=== PATIENT | female | born 1970 | race Caucasian/White ===

== ENCOUNTER 2021-11-21 23:12 | Inpatient (IN) | payer MEDICAID ==
[~2021-11-21] VITALS: Ht 160 cm; Wt 68.7 kg
[2021-11-21 23:58] LABS: BASOPHILS % (AUTO) 1.2 % (0.0-2.0); EOSINOPHILS % (AUTO) 0.8 % (1.0-6.0); HEMATOCRIT 29.3 % (36-46); HEMOGLOBIN 9.5 g/dL (12.0-16.0); LYMPHOCYTES # (AUTO) 0.6 K/uL (1.0-4.8); LYMPHOCYTES % (AUTO) 14.3 % (22.0-44.0); MEAN CORPUSCULAR HEMOGLOBIN 27.6 pg (26.0-34.0); MEAN CORPUSCULAR HGB CONC 32.3 G/dL (31.0-37.0); MEAN CORPUSCULAR VOLUME 86 fL (80-100); MONOCYTES # (AUTO) 0.5 K/uL (0.1-1.0); MONOCYTES % (AUTO) 12.2 % (2.0-9.0); NEUTROPHILS # (AUTO) 2.8 K/uL (1.8-7.7); NEUTROPHILS % (AUTO) 71.5 % (40.0-70.0); PLATELET COUNT (AUTO) 94 K/uL (150-450); RED BLOOD CELL COUNT(AUTO) 3.43 MIL/uL (4.00-5.20)
[2021-11-22] MEDS ORDERED: BACITRACIN 0.9 GM PACKET OINTMENT TP ONE
[2021-11-22 00:18] LABS: ALANINE AMINOTRANSFERASE 55 U/L (12-78); ALBUMIN 2.3 g/dL (3.4-5.0); ALKALINE PHOSPHATASE 156 U/L (46-116); ASPARTATE AMINOTRANSFERASE 99 U/L (15-37); BILIRUBIN,TOTAL 2.4 mg/dL (0.1-1.0); CALCIUM, TOTAL 8.1 mg/dL (8.8-10.5); CHLORIDE 101 mmol/L (98-107); CREATININE 0.64 mg/dL (0.60-1.30); GLOMERULAR FILTR. RATE CALC > 60 mL/min (>60); GLUCOSE,RANDOM 109 mg/dL (70-110); SODIUM SERUM 132 mmol/L (136-145); TOTAL PROTEIN, SERUM 8.8 g/dL (6.4-8.2); UREA NITROGEN, BLOOD 5 mg/dL (7-18)
[2021-11-22 00:27] LABS: ANION GAP 13 mmol/L (8-16); CARBON DIOXIDE 18 mmol/L (22-29)
[2021-11-22] MEDS ORDERED: POTASSIUM CHLORIDE 20 MEQ ER TABLET PO ONE ×2 (01:00→06:30)
[2021-11-22] MEDS ORDERED: LORazepam 2 MG TABLET PO PRN (03:15)
[2021-11-22] MEDS ORDERED: ZOLPIDEM TARTRATE 10 MG TABLET PO PRN (03:15)
[2021-11-22] MEDS ORDERED: HALOPERIDOL 5 MG TABLET PO PRN (03:15)
[2021-11-22 03:58] LABS: COVID AG,FIA SOURCE NASOPHARYNGEAL
[2021-11-22 05:00] VITALS: BP 168/98
[2021-11-22 05:03] LABS: POTASSIUM 2.8 mmol/L (3.5-5.1)
[2021-11-22] MEDS ORDERED: INFLUENZA VIRUS VACCINE QVS 2021-22 (6MO+)/PF 60 MCG/0.5 ML SYRINGE IM. ONE (05:45)
[2021-11-22 08:05] VITALS: BP 155/99
[2021-11-22 09:00] VITALS: BP 155/99
[2021-11-22] MEDS ORDERED: GuaiFENesin/D-METHORPHAN [SUGAR-FREE] 200-20MG/10 ML SYRUP UDCUP PO PRN (09:30)
[2021-11-22] MEDS ORDERED: ALBUTEROL SULFATE HFA 90 MCG/PUFF 8 GM INHALER IH PRN (09:30)
[2021-11-22] MEDS ORDERED: PETROLATUM,WHITE 28 GM JELLY TP PRN (09:30)
[2021-11-22] MEDS ORDERED: MAG HYDROX/AL HYDROX/SIMETH ES 30 ML SUSPENSION UDCUP PO PRN (09:30)
[2021-11-22] MEDS ORDERED: CloNIDine HCL 0.1 MG TABLET PO PRN (09:30)
[2021-11-22] MEDS ORDERED: NICOTINE 14 MG/24 HOUR PATCH TD PRN (09:30)
[2021-11-22] MEDS ORDERED: ACETAMINOPHEN 325 MG TABLET PO PRN (09:30)
[2021-11-22] MEDS ORDERED: DOCUSATE SODIUM 100 MG CAPSULE PO PRN (09:30)
[2021-11-22] MEDS ORDERED: LOPERAMIDE HCL 2 MG CAPSULE PO PRN (09:30)
[2021-11-22] MEDS ORDERED: ONDANSETRON HCL 4 MG TABLET PO PRN (09:30)
[2021-11-22] MEDS ORDERED: MAGNESIUM HYDROXIDE SUSPENSION 30 ML UDCUP PO PRN (09:30)
[2021-11-22 13:39] VITALS: BP 144/92
[2021-11-22 16:27] VITALS: BP 123/76
[2021-11-22] MEDS: OLANZapine 7.5 MG TABLET PO SCH (20:04)
[2021-11-23 08:30] VITALS: BP 120/70
[2021-11-23 09:33] LABS: BASOPHILS % (AUTO) 0.8 % (0.0-2.0); EOSINOPHILS % (AUTO) 2.9 % (1.0-6.0); HEMATOCRIT 28.8 % (36-46); HEMOGLOBIN 9.3 g/dL (12.0-16.0); LYMPHOCYTES # (AUTO) 0.8 K/uL (1.0-4.8); LYMPHOCYTES % (AUTO) 22.8 % (22.0-44.0); MEAN CORPUSCULAR HEMOGLOBIN 27.8 pg (26.0-34.0); MEAN CORPUSCULAR HGB CONC 32.2 G/dL (31.0-37.0); MEAN CORPUSCULAR VOLUME 87 fL (80-100); MONOCYTES # (AUTO) 0.4 K/uL (0.1-1.0); MONOCYTES % (AUTO) 12.8 % (2.0-9.0); NEUTROPHILS # (AUTO) 2.1 K/uL (1.8-7.7); NEUTROPHILS % (AUTO) 60.7 % (40.0-70.0); PLATELET COUNT (AUTO) 90 K/uL (150-450); RED BLOOD CELL COUNT(AUTO) 3.33 MIL/uL (4.00-5.20); RED CELL DISTRIBUTION WIDTH 21.6 % (11.5-14.5)
[2021-11-23 10:10] LABS: ANION GAP 6 mmol/L (8-16); CALCIUM, TOTAL 8.6 mg/dL (8.8-10.5); CARBON DIOXIDE 27 mmol/L (22-29); CHLORIDE 103 mmol/L (98-107); CREATININE 0.78 mg/dL (0.60-1.30); GLOMERULAR FILTR. RATE CALC > 60 mL/min (>60); GLUCOSE,RANDOM 131 mg/dL (70-110); POTASSIUM 5.2 mmol/L (3.5-5.1); SODIUM SERUM 136 mmol/L (136-145); UREA NITROGEN, BLOOD 6 mg/dL (7-18)
[2021-11-23] MEDS: OLANZapine 7.5 MG TABLET PO SCH ×2 (10:18→21:36)
[2021-11-23] MEDS ORDERED: SODIUM ZIRCONIUM CYCLOSILICATE 5 GM POWDER PACKET PO ONE (13:30)
[2021-11-23 16:53] VITALS: BP 115/68
[2021-11-23 17:01] LABS: APPEARANCE,URINE CLEAR (CLEAR); BILIRUBIN,URINE NEGATIVE (NEGATIVE); GLUCOSE, URINE (UA) NEGATIVE (NEGATIVE); KETONES,URINE NEGATIVE (NEGATIVE); LEUKOCYTE ESTERASE ,URINE LARGE (NEGATIVE); NITRATE,URINE NEGATIVE (NEGATIVE); OCCULT BLOOD,URINE NEGATIVE (NEGATIVE); PH,URINE 7.5 (5.0-8.0); PROTEIN,URINE NEGATIVE (NEGATIVE); SPECIFIC GRAVITIY, URINE 1.007 (1.003-1.030); UROBILINOGEN,URINE <=1.0 mg/dL (<=1.0)
[2021-11-23 17:09] LABS: AMPHET/METH SCREEN,URINE NEGATIVE (NEGATIVE); BARBITURATE SCREEN, URINE NEGATIVE (NEGATIVE); BENZODIAZEPINES SCREEN,URINE NEGATIVE (NEGATIVE); CANNABINOID SCREEN,URINE NEGATIVE (NEGATIVE); COCAINE SCREEN,URINE NEGATIVE (NEGATIVE); METHADONE SCREEN, URINE NEGATIVE (NEGATIVE); OPIATE SCREEN,URINE NEGATIVE (NEGATIVE)
[2021-11-23 17:10] LABS: BACTERIA,URINE Few /HPF (None Seen); RBC,URINE 0-2 /HPF (0-2); SQUAMOUS EPITHELIAL CELL,UR Few /LPF (None Seen); WBC,URINE 26-50 /HPF (0-5)
[2021-11-23 17:11] LABS: PHENCYCLIDINE SCREEN,URINE NEGATIVE (NEGATIVE)
[2021-11-24 08:00] VITALS: BP 113/70
[2021-11-24] MEDS: CEPHALEXIN MONOHYDRATE 500 MG CAPSULE PO SCH ×3 (08:20→17:02)
[2021-11-24] MEDS: OLANZapine 7.5 MG TABLET PO SCH ×2 (08:21→20:51)
[2021-11-24 16:58] VITALS: BP 130/76
[2021-11-25 08:05] VITALS: BP 106/58
[2021-11-25] MEDS: OLANZapine 7.5 MG TABLET PO SCH ×2 (08:27→20:37)
[2021-11-25] MEDS: CEPHALEXIN MONOHYDRATE 500 MG CAPSULE PO SCH ×3 (08:27→17:00)
[2021-11-25 16:30] VITALS: BP 124/74
[2021-11-26 08:53] VITALS: BP 111/65
[2021-11-26] MEDS: OLANZapine 7.5 MG TABLET PO SCH ×2 (09:40→20:14)
[2021-11-26] MEDS: CEPHALEXIN MONOHYDRATE 500 MG CAPSULE PO SCH ×3 (09:40→16:05)
[2021-11-26 11:43] VITALS: BP 122/76
[2021-11-26] MEDS: IBUPROFEN 400 MG TABLET PO PRN (11:43)
[2021-11-26 12:43] VITALS: BP 118/72
[2021-11-26 16:00] VITALS: BP 110/73
[2021-11-27] MEDS: OLANZapine 7.5 MG TABLET PO SCH ×2 (08:44→20:46)
[2021-11-27] MEDS: CEPHALEXIN MONOHYDRATE 500 MG CAPSULE PO SCH ×3 (08:50→16:32)
[2021-11-27 08:57] VITALS: BP 110/68
[2021-11-27] MEDS: SERTRALINE HCL 50 MG TABLET PO SCH (11:50)
[2021-11-27 16:16] VITALS: BP 117/79
[2021-11-28] MEDS: CEPHALEXIN MONOHYDRATE 500 MG CAPSULE PO SCH ×3 (08:57→16:29)
[2021-11-28] MEDS: OLANZapine 7.5 MG TABLET PO SCH ×2 (08:57→20:45)
[2021-11-28] MEDS: SERTRALINE HCL 50 MG TABLET PO SCH (08:57)
[2021-11-28 09:01] VITALS: BP 118/53
[2021-11-28 12:08] LABS: COVID AG,FIA SOURCE NASOPHARYNGEAL
[2021-11-28 16:23] VITALS: BP 108/55
[2021-11-29] MEDS: CEPHALEXIN MONOHYDRATE 500 MG CAPSULE PO SCH ×3 (08:09→16:16)
[2021-11-29] MEDS: OLANZapine 7.5 MG TABLET PO SCH ×2 (08:09→20:01)
[2021-11-29] MEDS: SERTRALINE HCL 50 MG TABLET PO SCH (08:09)
[2021-11-29 09:22] VITALS: BP 147/80
[2021-11-29 16:52] VITALS: BP 119/65
[2021-11-29 18:00] VITALS: BP 110/64
[2021-11-29 18:03] VITALS: BP 96/55
[2021-11-30] MEDS: OLANZapine 7.5 MG TABLET PO SCH ×2 (09:39→20:28)
[2021-11-30] MEDS: CEPHALEXIN MONOHYDRATE 500 MG CAPSULE PO SCH ×3 (09:40→17:06)
[2021-11-30] MEDS: SERTRALINE HCL 50 MG TABLET PO SCH (09:40)
[2021-11-30 10:05] VITALS: BP 121/57
[2021-11-30 12:41] VITALS: BP 121/57
[2021-11-30 16:00] VITALS: BP 108/61
[2021-12-01 05:22] VITALS: BP 111/63
[2021-12-01 06:32] VITALS: BP 120/75
[2021-12-01 06:34] VITALS: BP 115/63
[2021-12-01] MEDS: SERTRALINE HCL 50 MG TABLET PO SCH (09:07)
[2021-12-01] MEDS: OLANZapine 7.5 MG TABLET PO SCH ×2 (09:07→20:21)
[2021-12-01 09:13] VITALS: BP 116/61
[2021-12-01 17:34] VITALS: BP 105/62
[2021-12-02 06:15] VITALS: BP 115/57
[2021-12-02 06:20] VITALS: BP 99/63
[2021-12-02 06:25] VITALS: BP 114/74
[2021-12-02] MEDS: OLANZapine 7.5 MG TABLET PO SCH ×2 (08:06→20:42)
[2021-12-02] MEDS: SERTRALINE HCL 50 MG TABLET PO SCH (08:06)
[2021-12-02 09:23] VITALS: BP 122/73
[2021-12-02 16:41] VITALS: BP 105/63
[2021-12-03] VITALS (11 sets, daily range): BP systolic 104–137; BP diastolic 56–92
[2021-12-03] MEDS: SERTRALINE HCL 50 MG TABLET PO SCH (08:12)
[2021-12-03] MEDS: OLANZapine 7.5 MG TABLET PO SCH ×2 (08:12→20:20)
[2021-12-04] VITALS (7 sets, daily range): BP systolic 99–121; BP diastolic 53–86
[2021-12-04] MEDS: OLANZapine 7.5 MG TABLET PO SCH ×2 (08:27→20:34)
[2021-12-04] MEDS: SERTRALINE HCL 50 MG TABLET PO SCH (08:27)
[2021-12-04] MEDS: IBUPROFEN 400 MG TABLET PO PRN (09:12)
[2021-12-04] MEDS ORDERED: SERTRALINE HCL 50 MG TABLET PO ONE (09:45)
[2021-12-05] VITALS (9 sets, daily range): BP systolic 92–118; BP diastolic 56–70
[2021-12-05] MEDS: SERTRALINE HCL 100 MG TABLET PO SCH (08:27)
[2021-12-05] MEDS: OLANZapine 7.5 MG TABLET PO SCH ×2 (08:28→20:24)
[2021-12-05 11:19] LABS: COVID AG,FIA SOURCE NASOPHARYNGEAL
[2021-12-06] VITALS (7 sets, daily range): BP systolic 96–107; BP diastolic 56–84
[2021-12-06] MEDS: SERTRALINE HCL 100 MG TABLET PO SCH (08:51)
[2021-12-06] MEDS: OLANZapine 7.5 MG TABLET PO SCH ×2 (08:51→20:30)
[2021-12-07] VITALS (7 sets, daily range): BP systolic 94–114; BP diastolic 52–79
[2021-12-07] MEDS: SERTRALINE HCL 100 MG TABLET PO SCH (09:52)
[2021-12-07] MEDS: OLANZapine 7.5 MG TABLET PO SCH ×2 (09:52→20:43)
[2021-12-08] VITALS (9 sets, daily range): BP systolic 99–116; BP diastolic 56–73
[2021-12-08] MEDS: OLANZapine 7.5 MG TABLET PO SCH ×2 (09:11→20:06)
[2021-12-08] MEDS: SERTRALINE HCL 100 MG TABLET PO SCH (09:11)
[2021-12-09] VITALS (8 sets, daily range): BP systolic 104–118; BP diastolic 63–69
[2021-12-09] MEDS: SERTRALINE HCL 100 MG TABLET PO SCH (09:04)
[2021-12-09] MEDS: OLANZapine 7.5 MG TABLET PO SCH ×2 (09:08→20:24)
[2021-12-10] VITALS (10 sets, daily range): BP systolic 88–143; BP diastolic 49–96
[2021-12-10] MEDS: OLANZapine 7.5 MG TABLET PO SCH ×2 (08:12→20:11)
[2021-12-10] MEDS: SERTRALINE HCL 100 MG TABLET PO SCH (08:12)
[2021-12-11] VITALS (10 sets, daily range): BP systolic 86–124; BP diastolic 52–71
[2021-12-11] MEDS: SERTRALINE HCL 100 MG TABLET PO SCH (11:14)
[2021-12-11] MEDS: OLANZapine 7.5 MG TABLET PO SCH ×2 (11:14→20:01)
[2021-12-12 06:30] VITALS: BP 96/54
[2021-12-12 06:35] VITALS: BP 98/60
[2021-12-12 06:40] VITALS: BP 104/56
[2021-12-12 08:00] VITALS: BP_SYST 104; BP_SYST 108; BP_SYST 95; BP_DIAS 55; BP_DIAS 61
[2021-12-12] MEDS: SERTRALINE HCL 100 MG TABLET PO SCH (09:17)
[2021-12-12] MEDS: OLANZapine 7.5 MG TABLET PO SCH ×2 (09:17→20:01)
[2021-12-12 15:27] LABS: COVID AG,FIA SOURCE NASOPHARYNGEAL
[2021-12-12 16:00] VITALS: BP 107/77
[2021-12-12 16:28] VITALS: BP_SYST 107; BP_SYST 90; BP_SYST 99; BP_DIAS 54; BP_DIAS 59; BP_DIAS 77
[2021-12-13] VITALS (8 sets, daily range): BP systolic 100–132; BP diastolic 60–76
[2021-12-13] MEDS: OLANZapine 7.5 MG TABLET PO SCH ×2 (08:55→20:01)
[2021-12-13] MEDS: SERTRALINE HCL 100 MG TABLET PO SCH (08:55)
[2021-12-14] VITALS (7 sets, daily range): BP systolic 101–128; BP diastolic 66–77
[2021-12-14] MEDS: OLANZapine 7.5 MG TABLET PO SCH ×2 (08:13→20:14)
[2021-12-14] MEDS: SERTRALINE HCL 100 MG TABLET PO SCH (08:13)
[2021-12-15] MEDS: OLANZapine 7.5 MG TABLET PO SCH ×2 (08:22→20:09)
[2021-12-15] MEDS: SERTRALINE HCL 100 MG TABLET PO SCH (08:22)
[2021-12-15 09:00] VITALS: BP 95/67
[2021-12-15 16:30] VITALS: BP 99/70
[2021-12-16 08:00] VITALS: BP 119/70
[2021-12-16] MEDS: OLANZapine 7.5 MG TABLET PO SCH ×2 (09:33→21:11)
[2021-12-16] MEDS: SERTRALINE HCL 100 MG TABLET PO SCH (09:33)
[2021-12-16 16:00] VITALS: BP 108/65
[2021-12-17 08:00] VITALS: BP 104/66
[2021-12-17] MEDS: OLANZapine 7.5 MG TABLET PO SCH ×2 (08:54→20:15)
[2021-12-17] MEDS: SERTRALINE HCL 100 MG TABLET PO SCH (08:54)
[2021-12-17 16:43] VITALS: BP 113/75
[2021-12-18] MEDS: OLANZapine 7.5 MG TABLET PO SCH ×2 (09:07→20:12)
[2021-12-18] MEDS: SERTRALINE HCL 100 MG TABLET PO SCH (09:07)
[2021-12-18 09:09] VITALS: BP 90/57
[2021-12-18 17:42] VITALS: BP 80/55
[2021-12-18 20:05] VITALS: BP 101/60
[2021-12-19] MEDS: SERTRALINE HCL 100 MG TABLET PO SCH (08:37)
[2021-12-19] MEDS: OLANZapine 7.5 MG TABLET PO SCH ×2 (08:37→20:01)
[2021-12-19 08:48] VITALS: BP 102/54
[2021-12-19 16:02] VITALS: BP 109/66
[2021-12-19 18:04] LABS: COVID AG,FIA SOURCE NASAL SWAB
[2021-12-19 22:25] LABS: ANION GAP 4 mmol/L (8-16); CALCIUM, TOTAL 8.1 mg/dL (8.8-10.5); CARBON DIOXIDE 26 mmol/L (22-29); CHLORIDE 105 mmol/L (98-107); GLOMERULAR FILTR. RATE CALC > 60 mL/min (>60); GLUCOSE,RANDOM 97 mg/dL (70-110); SODIUM SERUM 135 mmol/L (136-145); UREA NITROGEN, BLOOD 17 mg/dL (7-18)
[2021-12-19 22:30] LABS: ALANINE AMINOTRANSFERASE 75 U/L (12-78); ALBUMIN 1.9 g/dL (3.4-5.0); ALKALINE PHOSPHATASE 160 U/L (46-116); ASPARTATE AMINOTRANSFERASE 119 U/L (15-37); BILIRUBIN,TOTAL 0.8 mg/dL (0.1-1.0); TOTAL PROTEIN, SERUM 7.3 g/dL (6.4-8.2)
[2021-12-20] MEDS: OLANZapine 7.5 MG TABLET PO SCH ×2 (08:01→20:33)
[2021-12-20] MEDS: SERTRALINE HCL 100 MG TABLET PO SCH (08:01)
[2021-12-20 08:56] VITALS: BP 116/63
[2021-12-20 16:49] VITALS: BP 95/54
[2021-12-20 17:29] VITALS: BP 109/58
[2021-12-21] MEDS: OLANZapine 7.5 MG TABLET PO SCH ×2 (09:08→20:48)
[2021-12-21] MEDS: SERTRALINE HCL 100 MG TABLET PO SCH (09:08)
[2021-12-21 09:13] VITALS: BP 94/52
[2021-12-21 16:00] VITALS: BP 90/57
[2021-12-22 08:58] VITALS: BP 99/60
[2021-12-22] MEDS: OLANZapine 7.5 MG TABLET PO SCH ×2 (09:00→20:25)
[2021-12-22] MEDS: SERTRALINE HCL 100 MG TABLET PO SCH (09:00)
[2021-12-22 16:09] VITALS: BP 92/51
[2021-12-23] MEDS: OLANZapine 7.5 MG TABLET PO SCH ×2 (11:08→20:20)
[2021-12-23] MEDS: SERTRALINE HCL 100 MG TABLET PO SCH (11:08)
[2021-12-23 12:44] VITALS: BP 110/67
[2021-12-23 16:00] VITALS: BP 100/69
[2021-12-24 08:01] LABS: ANION GAP 3 mmol/L (8-16); CALCIUM, TOTAL 8.6 mg/dL (8.8-10.5); CARBON DIOXIDE 25 mmol/L (22-29); CHLORIDE 106 mmol/L (98-107); CREATININE 0.73 mg/dL (0.60-1.30); GLOMERULAR FILTR. RATE CALC > 60 mL/min (>60); GLUCOSE,RANDOM 80 mg/dL (70-110); POTASSIUM 4.6 mmol/L (3.5-5.1); SODIUM SERUM 134 mmol/L (136-145); UREA NITROGEN, BLOOD 17 mg/dL (7-18)
[2021-12-24] MEDS: SERTRALINE HCL 100 MG TABLET PO SCH (08:14)
[2021-12-24] MEDS: OLANZapine 7.5 MG TABLET PO SCH (08:14)
[2021-12-24 08:48] VITALS: BP 104/63
[2021-12-24 11:58] LABS: COVID AG,FIA SOURCE NASOPHARYNGEAL
[2021-12-24] MEDS ORDERED: SERT-440 PO (12:28)
[2021-12-24] MEDS ORDERED: OLAN7.5T22 PO (12:28)
[2022-01-09] MEDS ORDERED: GABA-1181 PO (11:52)
[2022-01-09] MEDS ORDERED: AMOX1TAB16 PO (11:52)
== END 2021-12-24 15:30 | disposition home or self-care (01) | DRG 750 ==
LOC: EMS 23:19 → EDBD 23:19 → 3EI 11-22 04:39
PROVIDERS: ADMIT Psychiatry & Neurology Psychiatry; ATTEND Psychiatry & Neurology Psychiatry
DX: F20.0 Paranoid schizophrenia (principal); D61.818 Other pancytopenia; E87.1 Hypo-osmolality and hyponatremia; Z59.00 Homelessness unspecified; E87.5 Hyperkalemia; F10.10 Alcohol abuse, uncomplicated; E87.6 Hypokalemia; R42 Dizziness and giddiness; F32.A Depression, unspecified; Z20.822 Contact with and (suspected) exposure to COVID-19; Y90.0 Blood alcohol level of less than 20 mg/100 ml; F19.10 Other psychoactive substance abuse, uncomplicated; S00.01XA Abrasion of scalp, initial encounter; X58.XXXA Exposure to other specified factors, initial encounter; Y93.89 Activity, other specified; Y92.89 Other specified places as the place of occurrence of the external cause; Y99.8 Other external cause status; Z91.81 History of falling; Z71.51 Drug abuse counseling and surveillance of drug abuser; Z71.41 Alcohol abuse counseling and surveillance of alcoholic
CPT/HCPCS: 70450; 72125; 80048; 80053; 80307; 81001; 84132; 85025; 87086; 93005; 99285; G0480; Q9967